=== PATIENT | male | born 1970 | race Caucasian/White ===

== ENCOUNTER 2018-02-21 13:51 | Emergency (ER) | payer OTHER ==
[~2018-02-21] VITALS: Ht 180.3 cm; Wt 78.0 kg
[~2018-02-21 13:51] MED LIST: ALBU90OI6 INH; ALBU90OI61 INH; AMLO5 PO; ANTIBIOTIC; ASPI81CH; BENTYL; BENTYL PO; BENTYL20 MG; BP MED; BUPR150ERA PO; DOXY100 PO; DULO60; HIGH BP MED; HYDACE5 PO; HYDR1TAB94 PO; HYOS.125 SL; IBUP800; Imitrex100 MG; KETO10 PO; LISI5 PO; MECL25 PO; METO50ER; MIRT15 PO; NAPR500 PO; Naprosyn500 MG PO; OMEP20ER PO; OXYACE5T PO; POTA8; Percocet 5-3251 EACH PO; Pravachol80 MG; RISP.25; RXCLIN PO; RXOXYACE PO; SERT100 PO; SULTRIDS PO; TRIA80TC; Tambocor100 MG; Zantac150 MG PO; [UNRECOGNIZED DRUG - OTHER]; [UNRECOGNIZED DRUG - REMARK]
== END 2018-02-21 15:11 | disposition home or self-care (01) ==
LOC: ER 13:51
DX: H61.21 Impacted cerumen, right ear (principal); F32.9 Major depressive disorder, single episode, unspecified; F17.210 Nicotine dependence, cigarettes, uncomplicated; Z88.0 Allergy status to penicillin; Z79.899 Other long term (current) drug therapy; Z79.82 Long term (current) use of aspirin
CPT/HCPCS: 99282

== ENCOUNTER 2018-11-27 09:56 | Day surgery (SDC) | payer OTHER ==
[~2018-11-27] VITALS: Ht 177.8 cm; Wt 74.5 kg
[~2018-11-27 09:56] MED LIST changes: +BUPR150T2 PO; +Dicyclomine HCl10 MG PO; +Flonase 0.05% N16 GM; +Imitrex100 MG PO; +METO100ER PO; +POTA8 PO; +Pravachol80 MG PO; +Seroquel100 MG PO
[2018-11-27] MEDS ORDERED: Doxycycline Hy100 M3 PO (11:35)
--- NOTE | 2018-11-27 11:52 | NUR ---
11/27/18 1152 Juhi Pena 1ST I.V. ATTEMPT IN RIGHT FOREARM 2ND I.V. ATTEMPT IN RIGHRT HAND
--- NOTE | 2018-11-27 13:41 | NUR ---
11/27/18 1341 Dora Mukherjee PT REMOVED COBAN WHICH HAD BEEN PLACED OVER IV SITE AFTER IV HAD BEEN REMOVED. PT STATES "IT ITCHED". NO ACTIVE BLEEDING AT THIS TIME.
== END 2018-11-27 13:41 | disposition home or self-care (01) ==
LOC: ORSCSDS 09:56
PROVIDERS: Internal Medicine Gastroenterology
PROC: 0DJD8ZZ Inspection of Lower Intestinal Tract, Via Natural or Artificial Opening Endoscopic (ICD-10-PCS; principal; 2018-11-27 12:15)
DX: R19.4 Change in bowel habit (principal); K64.8 Other hemorrhoids; I10 Essential (primary) hypertension; G47.33 Obstructive sleep apnea (adult) (pediatric); F32.9 Major depressive disorder, single episode, unspecified; F17.210 Nicotine dependence, cigarettes, uncomplicated; Z79.899 Other long term (current) drug therapy
CPT/HCPCS: J2704; J7120

== ENCOUNTER → 2024-09-29 | Outpatient (CLI) | payer OTHER ==
[~2024-09-29] MED LIST changes: +Doxycycline Hy100 M3 PO
[2024-09-29 15:59] LABS: BASOPHILS ABSOLUTE AUTO 0.02 K/mm3 (0.00-0.23); BASOPHILS PERCENT AUTO 0 % (0-2); EOSINOPHILS ABSOLUTE AUTO 0.15 K/mm3 (0.00-0.68); EOSINOPHILS PERCENT AUTO 1 % (0-6); Hematocrit 44.4 % (37.0-53.0); Hemoglobin 15.5 g/dL (13.5-17.5); IMMATURE GRAN ABSOLUTE AUTO 0.03 K/mm3 (0.00-0.10); IMMATURE GRAN PERCENT AUTO 0 % (0-1); LYMPHOCYTES ABSOLUTE AUTO 2.04 K/mm3 (0.84-5.20); LYMPHOCYTES PERCENT AUTO 19 % (21-46); MONOCYTES ABSOLUTE AUTO 0.97 K/mm3 (0.16-1.47); MONOCYTES PERCENT AUTO 9 % (4-13); Mean Corpuscular HGB 33.3 pg (26.0-34.0); Mean Corpuscular HGB Conc 34.9 g/dL (31.5-36.5); Mean Corpuscular Volume 96 fL (80-100); Mean Platelet Volume 10.6 fL (9.1-12.4); NEUTROPHILS ABSOLUTE AUTO 7.29 K/mm3 (1.96-9.15); NEUTROPHILS PERCENT AUTO 70 % (41-73); Platelet Count 194 K/mm3 (150-400); RDW Coefficient Variation 13.2 % (11.7-14.2); RDW Standard Deviation 46.3 fL (35.1-46.3); Red Blood Cell Count 4.65 M/mm3 (4.30-5.90)
[2024-09-29 16:09] LABS: Albumin, Blood 3.9 g/dL (3.4-5.0); Albumin/Globulin Ratio 1.2 (0.8-1.8); Bilirubin, Total 0.7 mg/dL (0.1-1.0); Bun/Creatinine Ratio 15.1 (12.0-20.0); Calcium, Blood 9.1 mg/dL (8.5-10.1); Creatinine, Blood 0.93 mg/dL (0.60-1.20); Globulin, Blood 3.2 g/dL (2.2-4.0); Potassium, Blood 3.9 mmol/L (3.5-5.5); Total Protein, Blood 7.1 g/dL (6.4-8.2)
== END ==
LOC: LAB 15:54 → LAB SHORT 15:54
PROVIDERS: Physician Assistant
DX: R10.13 Epigastric pain (principal)
CPT/HCPCS: 80053; 83690; 84484; 85025